=== PATIENT | female | born 1995 | race Caucasian/White ===

== ENCOUNTER 2018-08-12 16:08 | Emergency (ER) | payer MEDICAID ==
[~2018-08-12] VITALS: Ht 160 cm; Wt 42.6 kg
[~2018-08-12 16:08] MED LIST: ATOR20TA40 PO; GLU500 PO; GLUC-321 MC; GLUC-805 FS; INSU100S22 SUBQ; LACT10CA PO; MAGN400T7 PO; NITR100C7 PO; PERM5CRE3 TP; [UNRECOGNIZED DRUG - CODE] MC
[2018-08-12 16:18] VITALS: BP 111/73
--- NOTE | 2018-08-12 17:32 | NUR ---
PATIENT PRESENTS TO ED WITH THE CHIEF C/O RIGHT EYE PAIN. PT STATES PT WAKE UP WITH PAIN ON RIGHT EYE AND REDNESS. DENIES POKING OR DENIES HITTING EYES BY ANY OBJECTS. DENIES N/V/D; SKIN IS PINK/WARM/DRY; AAOX4 WITH EVEN AND STEADY GAIT; LUNGS CLEAR BL; HR EVEN AND REGULAR; PT DENIES ANY FEVER, CP, SOB, OR COUGH AT THIS TIME; PATIENT STATES PAIN OF 5/10 AT THIS TIME; VSS; PATIENT POSITIONED FOR COMFORT; HOB ELEVATED; BEDRAILS UP X2; BED DOWN. ER MD MADE AWARE OF PT STATUS.
[2018-08-12] MEDS ORDERED: TETRACAINE HCL/PF 0.5% OPTH 4 ML BTL OP ONE (17:40)
[2018-08-12] MEDS ORDERED: FLUORESCEIN OPTH STRIP 0.6 MG OP ONE (17:40)
--- NOTE | 2018-08-12 17:52 | NUR ---
ADMINISTERED TETRACAINE EYE DROP 1 DROP IN RIGHT EYE PER ORDERED.
--- NOTE | 2018-08-12 18:55 | NUR ---
UNABLE TO COLLECT URINE. DR. MORAN AWARE. SAID OK. Addendum: 08/12/18 at 1856 by ERIK WRONG PT CHARTING
--- NOTE | 2018-08-12 18:55 | NUR ---
Patient discharged with v/s stable. Written and verbal after care instructions given and explained. Patient alert, oriented and verbalized understanding of instructions. Ambulatory with steady gait. All questions addressed prior to discharge. ID band removed. Patient advised to follow up with PMD. Rx of NORCO, CIPROFLOXACIN EYE DROPS given. Patient educated on indication of medication including possible reaction and side effects. Opportunity to ask questions provided and answered.
[2018-08-12 18:56] VITALS: BP 109/58
== END 2018-08-12 18:55 | disposition home or self-care (01) ==
LOC: MED 16:08
DX: H16.001 Unspecified corneal ulcer, right eye (principal); Z79.899 Other long term (current) drug therapy; Z79.4 Long term (current) use of insulin; Z79.84 Long term (current) use of oral hypoglycemic drugs
CPT/HCPCS: 99283